=== PATIENT | male | born 1950 | race African-American/Black ===

== ENCOUNTER 2018-12-09 08:08 | Inpatient (IN) | payer MEDICARE, MEDICAID ==
[~2018-12-09] VITALS: Ht 170.2 cm; Wt 64.9 kg
[2018-12-09] MEDS ORDERED: SODIUM CHLORIDE 0.9% 1,000 ML IV ONE (08:20)
[2018-12-09 08:43] LABS: HEMATOCRIT. 47.6 % (42.0-52.0); HEMOGLOBIN. 15.6 g/dL (14.0-18.0); MEAN CORPUSCULAR HEMOGLOBIN 26.9 pg (28.0-32.0); MEAN CORPUSCULAR VOLUME 82.2 fL (80.0-94.0); MEAN PLATELET VOLUME 6.5 fl (7.4-10.4); PLATELET 300 x1000/uL (130-400); RED BLOOD CELL COUNT 5.79 mill/uL (4.7-6.1); RED CELL DISTRIBUTION WIDTH 15.9 % (11.6-14.6)
[2018-12-09] MEDS ORDERED: ONDANSETRON HCL 4MG/2ML INJ IV ONE (08:45)
[2018-12-09] MEDS ORDERED: MORPHINE SULFATE 10 MG/ML CPJ IV ONE (08:45)
[2018-12-09 08:48] LABS: CHLORIDE 100 mEq/L (98-107)
[2018-12-09 08:51] LABS: PARTIAL THROMBOPLASTIN TIME 29.4 sec (23.4-31.0); PROTHROMBIN TIME 10.5 sec (9.1-11.1)
[2018-12-09 09:04] LABS: PLATELET ESTIMATE NORMAL
[2018-12-09] MEDS ORDERED: DEXT 5%/0.45% NACL KCL 20MEQ/L 1,000 ML IV ONE (09:04)
[2018-12-09 09:34] LABS: CLARITY URINE CLEAR (CLEAR); COLOR URINE YELLOW (YELLOW); KETONES URINE 1+ (NEGATIVE); LEUKOCYTE ESTERASE URINE NEGATIVE (NEGATIVE); NITRITE URINE NEGATIVE (NEGATIVE); OCCULT BLOOD URINE TRACE (NEGATIVE); PROTEIN URINE 1+ (NEGATIVE); SPECIFIC GRAVITY URINE 1.014 (1.005-1.030); UROBILINOGEN URINE 0.2 E.U./dL (0.2-1.0)
[2018-12-09] MEDS ORDERED: ENALAPRIL 2.5MG/2ML VIAL 2ML IV ONE ×2 (10:15→12:45)
[2018-12-09] MEDS ORDERED: DOCUSATE SODIUM 100MG CAPSULE PO PRN (12:15)
[2018-12-09] MEDS ORDERED: TRAMADOL 50MG TABLET PO PRN (12:15)
[2018-12-09] MEDS ORDERED: ONDANSETRON HCL 4MG/2ML INJ IV PRN (12:15)
[2018-12-09] MEDS ORDERED: DIPHENHYDRAMINE 50MG/ML VIAL IV PRN (12:15)
[2018-12-09] MEDS ORDERED: CLONIDINE 0.1MG TABLET PO PRN (12:15)
[2018-12-09] MEDS ORDERED: IPRATROPIUM/ALBUTEROL 0.5-3(2.5)MG/3ML NEB INH PRN (12:15)
[2018-12-09] MEDS ORDERED: MAGNESIUM/ALUMINUM HYDROXIDE/SIMETHICONE 30ML UDC PO PRN (12:15)
[2018-12-09] MEDS ORDERED: GUAIFENESIN 200MG/10ML SUGAR FREE UDC PO PRN (12:15)
[2018-12-09] MEDS ORDERED: NA PHOS,M-B/NA PHOS,DI-BA ENEMA 118ML PR PRN (12:15)
[2018-12-09] MEDS: MORPHINE SULFATE 4 MG/ML CPJ (NOT FOR IM USE) IV PRN ×3 (12:35→23:03)
[2018-12-09] MEDS: KETOROLAC 15MG/ML VIAL IV PRN (12:36)
[2018-12-09 13:15] VITALS: BP 137/80
[2018-12-09] MEDS: ENOXAPARIN 40MG/0.4ML SYR SUBCUT SCH (14:00)
[2018-12-09] MEDS: HYDRALAZINE HCL 50MG TABLET PO SCH ×2 (15:58→21:04)
[2018-12-09] MEDS: AMLODIPINE 10MG TABLET PO SCH (15:59)
[2018-12-09 20:00] VITALS: BP 116/72
[2018-12-09] MEDS ORDERED: ZOLPIDEM TARTRATE 5MG TABLET PO PRN (21:00)
[2018-12-09] MEDS ORDERED: METOPROLOL TARTRATE 25MG TABLET PO SCH (21:00)
[2018-12-09] MEDS: ACETAMINOPHEN 325MG TABLET PO PRN (21:02)
[2018-12-09] MEDS: FAMOTIDINE 20MG TABLET PO SCH (21:03)
[2018-12-09] MEDS: ASCORBIC ACID 500 MG TABLET PO SCH (21:03)
[2018-12-09] MEDS: LISINOPRIL 20MG TABLET PO SCH (21:03)
[2018-12-10] VITALS: BP 89/57
[2018-12-10 04:00] VITALS: BP 101/53
[2018-12-10] MEDS: HYDRALAZINE HCL 50MG TABLET PO SCH ×3 (05:39→21:34)
[2018-12-10] MEDS: ACETAMINOPHEN 325MG TABLET PO PRN ×2 (05:47→23:39)
[2018-12-10 08:00] VITALS: BP 119/67
[2018-12-10] MEDS ORDERED: BACITRACIN 15GM TUBE TOP ONE (08:39)
[2018-12-10] MEDS ORDERED: VANCOMYCIN HCL 500 MG/VIAL ONE (08:39)
[2018-12-10] MEDS: ZINC SULFATE 220 MG ( 50 ) CAPSULE PO SCH (08:47)
[2018-12-10] MEDS: LISINOPRIL 20MG TABLET PO SCH ×2 (08:48→21:34)
[2018-12-10] MEDS: AMLODIPINE 10MG TABLET PO SCH (08:48)
[2018-12-10] MEDS: ASCORBIC ACID 500 MG TABLET PO SCH ×2 (08:48→21:33)
[2018-12-10] MEDS: FAMOTIDINE 20MG TABLET PO SCH ×2 (08:48→21:34)
[2018-12-10 11:19] LABS: *AMPHETAMINES SCREEN URINE NEGATIVE (NEGATIVE); *BARBITURATES SCREEN URINE NEGATIVE (NEGATIVE); *BENZODIAZEPINES SCREEN URINE NEGATIVE (NEGATIVE); *COCAINE SCREEN URINE PRESUMTIVE POSITIVE (NEGATIVE)
[2018-12-10 11:20] LABS: CANNABINOID URINE SCREEN NEGATIVE (NEGATIVE); METHADONE URINE SCREEN NEGATIVE (NEGATIVE); OPIATES URINE SCREEN NEGATIVE (NEGATIVE); PHENCYCLIDINE URINE SCREEN NEGATIVE (NEGATIVE)
[2018-12-10 12:00] VITALS: BP 149/105
[2018-12-10] MEDS ORDERED: PROPOFOL 200MG/20ML VIAL IV ONE (12:03)
[2018-12-10] MEDS ORDERED: MIDAZOLAM HCL 2 MG/2 ML VIAL ONE (12:05)
[2018-12-10] MEDS ORDERED: ROCURONIUM BROMIDE 10MG/ML VIAL 5ML IV ONE (12:05)
[2018-12-10] MEDS ORDERED: FENTANYL CITRATE/PF 50MCG/ML 2ML VIAL ONE (12:05)
[2018-12-10] MEDS ORDERED: PHENYLEPHRINE HCL 10 MG/ML 1ML (IV VIAL) IV ONE (12:14)
[2018-12-10] MEDS ORDERED: SODIUM CHLORIDE 0.9% 10ML VIAL ONE (12:14)
[2018-12-10] MEDS ORDERED: CEFAZOLIN SODIUM 1000MG/VIAL ONE (12:31)
[2018-12-10] MEDS ORDERED: ONDANSETRON HCL 4MG/2ML INJ ONE (12:52)
[2018-12-10] MEDS ORDERED: ESMOLOL HCL 10MG/ML 10ML VIAL IV ONE (13:05)
[2018-12-10] MEDS: ENOXAPARIN 40MG/0.4ML SYR SUBCUT SCH (14:00)
[2018-12-10] MEDS: HYDROMORPHONE HCL/PF 2MG/ML CPJ IV PRN ×2 (14:33→14:45)
[2018-12-10 16:00] VITALS: BP 138/79
[2018-12-10 20:00] VITALS: BP 118/75
[2018-12-10] MEDS: MORPHINE SULFATE 4 MG/ML CPJ (NOT FOR IM USE) IV PRN (21:33)
[2018-12-10] MEDS: CEFAZOLIN 1000MG PREMIX 50 ML IV SCH (21:35)
[2018-12-11] VITALS: BP 125/68
[2018-12-11] MEDS: CEFAZOLIN 1000MG PREMIX 50 ML IV SCH (03:51)
[2018-12-11 04:00] VITALS: BP 121/67
[2018-12-11] MEDS: KETOROLAC 15MG/ML VIAL IV PRN ×3 (04:17→22:03)
[2018-12-11] MEDS: HYDRALAZINE HCL 50MG TABLET PO SCH ×3 (05:57→22:03)
[2018-12-11 08:00] VITALS: BP_SYST 120; BP_SYST 122; BP_DIAS 62; BP_DIAS 66
[2018-12-11] MEDS: LISINOPRIL 20MG TABLET PO SCH ×2 (08:25→21:00)
[2018-12-11] MEDS: ZINC SULFATE 220 MG ( 50 ) CAPSULE PO SCH (08:25)
[2018-12-11] MEDS: AMLODIPINE 10MG TABLET PO SCH (08:25)
[2018-12-11] MEDS: ASCORBIC ACID 500 MG TABLET PO SCH ×2 (08:25→22:02)
[2018-12-11] MEDS: FAMOTIDINE 20MG TABLET PO SCH ×2 (08:25→22:06)
[2018-12-11 12:00] VITALS: BP 95/48
[2018-12-11] MEDS: ENOXAPARIN 40MG/0.4ML SYR SUBCUT SCH (14:32)
[2018-12-11 16:00] VITALS: BP 122/62
[2018-12-11 20:00] VITALS: BP 127/69
[2018-12-12] VITALS: BP 128/78
[2018-12-12 04:00] VITALS: BP 119/69
[2018-12-12] MEDS: HYDRALAZINE HCL 50MG TABLET PO SCH ×2 (06:18→13:41)
[2018-12-12 08:00] VITALS: BP 142/73
[2018-12-12] MEDS: AMLODIPINE 10MG TABLET PO SCH (09:20)
[2018-12-12] MEDS: ZINC SULFATE 220 MG ( 50 ) CAPSULE PO SCH (09:21)
[2018-12-12] MEDS: LISINOPRIL 20MG TABLET PO SCH (09:21)
[2018-12-12] MEDS: ASCORBIC ACID 500 MG TABLET PO SCH (09:21)
[2018-12-12] MEDS: FAMOTIDINE 20MG TABLET PO SCH (09:21)
[2018-12-12 12:00] VITALS: BP 134/74
[2018-12-12] MEDS ORDERED: FERROUS SULFATE 300MG/5ML UDC PO SCH (12:50)
[2018-12-12 13:15] VITALS: BP 134/74
[2018-12-12] MEDS: ENOXAPARIN 40MG/0.4ML SYR SUBCUT SCH (13:45)
[2018-12-12 14:50] VITALS: BP 118/56
[2018-12-12] MEDS: KETOROLAC 15MG/ML VIAL IV PRN (14:50)
[2018-12-12 16:17] LABS: BASOPHILS % 0.4 % (0.0-2.0); HEMATOCRIT. 34.2 % (42.0-52.0); HEMOGLOBIN. 11.2 g/dL (14.0-18.0); LYMPHOCYTES % 21.7 % (20.0-50.0); MEAN CORPUSCULAR HEMOGLOBIN 27.1 pg (28.0-32.0); MEAN CORPUSCULAR VOLUME 82.7 fL (80.0-94.0); MEAN PLATELET VOLUME 6.8 fl (7.4-10.4); MONOCYTES % 8.7 % (2.0-8.0); NEUTROPHILS % 65.2 % (40.0-76.0); PLATELET 231 x1000/uL (130-400); RED BLOOD CELL COUNT 4.14 mill/uL (4.7-6.1); RED CELL DISTRIBUTION WIDTH 15.8 % (11.6-14.6)
[2018-12-12] MEDS ORDERED: ATORVASTATIN CALCIUM 10MG TABLET PO SCH (21:00)
== END 2018-12-12 16:38 | DRG 481 ==
LOC: ER 08:08 → EDBEDREQSVC 09:58 → EDBEDREQ 09:58 → EDBEDREQTM 09:58 → 6EST 12:07 → EDBEDREQSVC 12:13 → SUPCPDRO 12:15 → ENRESERV 12:36 → 6EST 14:56
PROVIDERS: ADMIT Internal Medicine; ATTEND Internal Medicine
PROC: 0QS634Z Reposition Right Upper Femur with Internal Fixation Device, Percutaneous Approach (ICD-10-PCS; principal; 2018-12-10)
DX: S72.011A Unspecified intracapsular fracture of right femur, initial encounter for closed fracture (principal); I69.351 Hemiplegia and hemiparesis following cerebral infarction affecting right dominant side; E78.00 Pure hypercholesterolemia, unspecified; R26.9 Unspecified abnormalities of gait and mobility; W01.0XXA Fall on same level from slipping, tripping and stumbling without subsequent striking against object, initial encounter; I10 Essential (primary) hypertension; F14.10 Cocaine abuse, uncomplicated; Z82.49 Family history of ischemic heart disease and other diseases of the circulatory system; Z79.899 Other long term (current) drug therapy; Z87.891 Personal history of nicotine dependence; Y93.89 Activity, other specified; Y92.89 Other specified places as the place of occurrence of the external cause; Y99.8 Other external cause status
CPT/HCPCS: 36415; 71045; 72192; 73502; 73700; 76000; 80061; 80305; 82962; 83036; 84484; 86850; 86900; 93005; 93970; 96374; 97110; 97162; 97166; 99285; J0690; J1170; J1650; J1885; J2250; J2270; J2370; J2405; J2704; J3010; J3370; J3490; J7030

== ENCOUNTER 2018-12-12 16:40 | Inpatient (IN) | payer MEDICARE, MEDICAID ==
[~2018-12-12] VITALS: Ht 170.2 cm; Wt 64.9 kg
[2018-12-12 16:00] VITALS: BP 111/64
[2018-12-12 16:45] VITALS: BP 111/64
[2018-12-12] MEDS ORDERED: ONDANSETRON HCL 4MG/2ML INJ IV PRN (19:15)
[2018-12-12] MEDS ORDERED: MORPHINE SULFATE 4 MG/ML CPJ (NOT FOR IM USE) IV PRN (19:15)
[2018-12-12] MEDS ORDERED: DOCUSATE SODIUM 100MG CAPSULE PO PRN (19:15)
[2018-12-12] MEDS ORDERED: CLONIDINE 0.1MG TABLET PO PRN (19:15)
[2018-12-12] MEDS ORDERED: IPRATROPIUM/ALBUTEROL 0.5-3(2.5)MG/3ML NEB HHN PRN (19:15)
[2018-12-12] MEDS ORDERED: DIPHENHYDRAMINE 50MG/ML VIAL IV PRN (19:15)
[2018-12-12] MEDS ORDERED: KETOROLAC 15MG/ML VIAL IV PRN (19:15)
[2018-12-12] MEDS ORDERED: ACETAMINOPHEN 325MG TABLET PO PRN (19:15)
[2018-12-12] MEDS ORDERED: NA PHOS,M-B/NA PHOS,DI-BA ENEMA 118ML PR PRN (19:30)
[2018-12-12] MEDS ORDERED: MAGNESIUM/ALUMINUM HYDROXIDE/SIMETHICONE 30ML UDC PO PRN (19:30)
[2018-12-12] MEDS ORDERED: GUAIFENESIN 200MG/10ML SUGAR FREE UDC PO PRN (19:30)
[2018-12-12 20:00] VITALS: BP 118/61
[2018-12-12] MEDS ORDERED: ZOLPIDEM TARTRATE 5MG TABLET PO PRN (21:00)
[2018-12-12] MEDS: ASCORBIC ACID 500 MG TABLET PO SCH (21:10)
[2018-12-12] MEDS: FAMOTIDINE 20MG TABLET PO SCH (21:10)
[2018-12-12] MEDS: LISINOPRIL 20MG TABLET PO SCH (21:11)
[2018-12-12] MEDS: HYDRALAZINE HCL 50MG TABLET PO SCH (22:00)
[2018-12-13 05:15] VITALS: BP 106/64
[2018-12-13] MEDS: HYDRALAZINE HCL 50MG TABLET PO SCH ×3 (05:15→21:43)
[2018-12-13 06:37] LABS: CHLORIDE 103 mEq/L (98-107)
[2018-12-13 06:52] LABS: BASOPHILS % 0.6 % (0.0-2.0); EOSINOPHILS % 4.7 % (0.0-5.0); HEMATOCRIT. 34.3 % (42.0-52.0); HEMOGLOBIN. 11.4 g/dL (14.0-18.0); MEAN CORPUSCULAR HEMOGLOBIN 27.5 pg (28.0-32.0); MEAN CORPUSCULAR VOLUME 82.4 fL (80.0-94.0); MEAN PLATELET VOLUME 6.9 fl (7.4-10.4); MONOCYTES % 8.9 % (2.0-8.0); NEUTROPHILS % 61.8 % (40.0-76.0); PLATELET 244 x1000/uL (130-400); RED BLOOD CELL COUNT 4.16 mill/uL (4.7-6.1); RED CELL DISTRIBUTION WIDTH 15.7 % (11.6-14.6)
[2018-12-13 08:18] VITALS: BP 122/71
[2018-12-13] MEDS: FAMOTIDINE 20MG TABLET PO SCH ×2 (08:34→21:42)
[2018-12-13] MEDS: ENOXAPARIN 40MG/0.4ML SYR SUBCUT SCH (08:34)
[2018-12-13] MEDS: ZINC SULFATE 220 MG ( 50 ) CAPSULE PO SCH (08:34)
[2018-12-13] MEDS: LISINOPRIL 20MG TABLET PO SCH ×2 (08:35→21:43)
[2018-12-13] MEDS: AMLODIPINE 10MG TABLET PO SCH (08:35)
[2018-12-13] MEDS: ASCORBIC ACID 500 MG TABLET PO SCH ×2 (08:35→21:42)
[2018-12-13] MEDS: FERROUS SULFATE 300MG/5ML UDC PO SCH ×3 (08:35→17:21)
[2018-12-13 12:00] VITALS: BP 129/76
[2018-12-13] MEDS: LACTULOSE 20G/30ML UDC PO SCH ×2 (14:57→19:00)
[2018-12-13 16:50] VITALS: BP 117/67
[2018-12-13] MEDS: DOCUSATE SODIUM 100MG CAPSULE PO SCH (17:21)
[2018-12-13 20:00] VITALS: BP 114/63
[2018-12-13 20:08] LABS: ETHANOL BLOOD < 10 mg/dL
[2018-12-13 20:11] LABS: LDL CHOLESTEROL 87 mg/dL (5-100)
[2018-12-13 20:12] LABS: HDL CHOLESTEROL 33 mg/dL (40-59)
[2018-12-13 20:13] LABS: T4 FREE 1.16 ng/dL (0.76-1.46)
[2018-12-13 20:51] LABS: FOLIC ACID (FOLATE) SERUM 11.5 ng/mL (>5.38)
[2018-12-13] MEDS: POLYETHYLENE GLYCOL 3350 (17GM) 1 DOSE PACK PO SCH (21:00)
[2018-12-13] MEDS: ATORVASTATIN CALCIUM 10MG TABLET PO SCH (21:42)
[2018-12-13] MEDS: TRAMADOL 50MG TABLET PO PRN (22:59)
[2018-12-14 00:37] LABS: *AMPHETAMINES SCREEN URINE NEGATIVE (NEGATIVE); *BARBITURATES SCREEN URINE NEGATIVE (NEGATIVE); CANNABINOID URINE SCREEN NEGATIVE (NEGATIVE)
[2018-12-14 00:38] LABS: *BENZODIAZEPINES SCREEN URINE NEGATIVE (NEGATIVE); *COCAINE SCREEN URINE NEGATIVE (NEGATIVE); OPIATES URINE SCREEN NEGATIVE (NEGATIVE); PHENCYCLIDINE URINE SCREEN NEGATIVE (NEGATIVE)
[2018-12-14 00:43] LABS: METHADONE URINE SCREEN NEGATIVE (NEGATIVE)
[2018-12-14] MEDS: HYDRALAZINE HCL 50MG TABLET PO SCH ×3 (06:00→21:57)
[2018-12-14] MEDS: TRAMADOL 50MG TABLET PO PRN ×3 (06:16→21:57)
[2018-12-14 08:00] VITALS: BP 124/74
[2018-12-14] MEDS: DOCUSATE SODIUM 100MG CAPSULE PO SCH ×2 (08:31→16:25)
[2018-12-14] MEDS: ENOXAPARIN 40MG/0.4ML SYR SUBCUT SCH (08:31)
[2018-12-14] MEDS: FERROUS SULFATE 300MG/5ML UDC PO SCH ×3 (08:31→16:25)
[2018-12-14] MEDS: ASCORBIC ACID 500 MG TABLET PO SCH ×2 (08:32→20:49)
[2018-12-14] MEDS: LISINOPRIL 20MG TABLET PO SCH ×2 (08:32→20:49)
[2018-12-14] MEDS: FAMOTIDINE 20MG TABLET PO SCH ×2 (08:32→20:49)
[2018-12-14] MEDS: AMLODIPINE 10MG TABLET PO SCH (08:32)
[2018-12-14] MEDS: ZINC SULFATE 220 MG ( 50 ) CAPSULE PO SCH (08:32)
[2018-12-14] MEDS ORDERED: CYANOCOBALAMIN 1000MCG/ML VIAL IM NR (16:30)
[2018-12-14 20:00] VITALS: BP 123/74
[2018-12-14] MEDS: ATORVASTATIN CALCIUM 10MG TABLET PO SCH (20:49)
[2018-12-14] MEDS: POLYETHYLENE GLYCOL 3350 (17GM) 1 DOSE PACK PO SCH (20:49)
[2018-12-15] MEDS: HYDRALAZINE HCL 50MG TABLET PO SCH ×3 (05:40→21:29)
[2018-12-15 07:36] LABS: CHLORIDE 99 mEq/L (98-107)
[2018-12-15 07:41] LABS: BASOPHILS % 0.8 % (0.0-2.0); EOSINOPHILS % 4.4 % (0.0-5.0); HEMATOCRIT. 34.1 % (42.0-52.0); HEMOGLOBIN. 11.4 g/dL (14.0-18.0); LYMPHOCYTES % 22.7 % (20.0-50.0); MEAN CORPUSCULAR HEMOGLOBIN 27.2 pg (28.0-32.0); MEAN CORPUSCULAR VOLUME 81.5 fL (80.0-94.0); MEAN PLATELET VOLUME 6.8 fl (7.4-10.4); MONOCYTES % 8.5 % (2.0-8.0); NEUTROPHILS % 63.6 % (40.0-76.0); PLATELET 322 x1000/uL (130-400); RED BLOOD CELL COUNT 4.19 mill/uL (4.7-6.1); RED CELL DISTRIBUTION WIDTH 15.1 % (11.6-14.6)
[2018-12-15 07:54] LABS: PHOSPHORUS 3.7 mg/dL (2.5-4.9)
[2018-12-15 07:56] LABS: LDL CHOLESTEROL 91 mg/dL (5-100); TOTAL IRON BINDING CAPACITY 243 ug/dL (250-450)
[2018-12-15 07:57] LABS: HDL CHOLESTEROL 33 mg/dL (40-59)
[2018-12-15 08:00] VITALS: BP 119/62
[2018-12-15 08:07] LABS: PROSTRATE SPECIFIC AG TOTAL 0.27 ng/mL (0.0-4.0)
[2018-12-15] MEDS: DOCUSATE SODIUM 100MG CAPSULE PO SCH ×2 (08:19→17:12)
[2018-12-15] MEDS: FERROUS SULFATE 300MG/5ML UDC PO SCH ×3 (08:19→17:12)
[2018-12-15] MEDS: FAMOTIDINE 20MG TABLET PO SCH ×2 (08:19→20:34)
[2018-12-15] MEDS: ZINC SULFATE 220 MG ( 50 ) CAPSULE PO SCH (08:19)
[2018-12-15] MEDS: ASCORBIC ACID 500 MG TABLET PO SCH ×2 (08:19→20:34)
[2018-12-15] MEDS: LISINOPRIL 20MG TABLET PO SCH ×2 (08:20→20:34)
[2018-12-15] MEDS: AMLODIPINE 10MG TABLET PO SCH (08:20)
[2018-12-15] MEDS: TRAMADOL 50MG TABLET PO PRN ×3 (08:21→21:30)
[2018-12-15] MEDS: ENOXAPARIN 40MG/0.4ML SYR SUBCUT SCH (08:22)
[2018-12-15] MEDS ORDERED: DOCUSATE SODIUM 100MG CAPSULE PO PRN (18:45)
[2018-12-15] MEDS ORDERED: IOHEXOL-350 100 ML BOTTLE ONE (19:16)
[2018-12-15 20:00] VITALS: BP 114/69
[2018-12-15] MEDS: ATORVASTATIN CALCIUM 10MG TABLET PO SCH (20:34)
[2018-12-15] MEDS: POLYETHYLENE GLYCOL 3350 (17GM) 1 DOSE PACK PO SCH (20:34)
[2018-12-16] MEDS: TRAMADOL 50MG TABLET PO PRN ×3 (05:05→21:16)
[2018-12-16] MEDS: HYDRALAZINE HCL 50MG TABLET PO SCH ×3 (05:05→23:19)
[2018-12-16 07:59] VITALS: BP 114/51
[2018-12-16] MEDS: ASCORBIC ACID 500 MG TABLET PO SCH ×2 (08:55→21:15)
[2018-12-16] MEDS: ZINC SULFATE 220 MG ( 50 ) CAPSULE PO SCH (08:55)
[2018-12-16] MEDS: FAMOTIDINE 20MG TABLET PO SCH ×2 (08:55→21:16)
[2018-12-16] MEDS: LISINOPRIL 20MG TABLET PO SCH ×2 (08:55→21:16)
[2018-12-16] MEDS: ENOXAPARIN 40MG/0.4ML SYR SUBCUT SCH (08:56)
[2018-12-16] MEDS: AMLODIPINE 10MG TABLET PO SCH (08:56)
[2018-12-16] MEDS: DOCUSATE SODIUM 100MG CAPSULE PO SCH ×2 (08:56→17:19)
[2018-12-16] MEDS: FERROUS SULFATE 300MG/5ML UDC PO SCH ×3 (08:56→17:19)
[2018-12-16] MEDS ORDERED: HYDROCODONE/ACETAMINOPHEN 5/325MG TABLET PO PRN (11:30)
[2018-12-16] MEDS ORDERED: LACTULOSE 20G/30ML UDC PO PRN (11:30)
[2018-12-16] MEDS ORDERED: CYANOCOBALAMIN 1000MCG/ML VIAL IM SCH (14:15)
[2018-12-16 20:00] VITALS: BP 125/65
[2018-12-16] MEDS: POLYETHYLENE GLYCOL 3350 (17GM) 1 DOSE PACK PO SCH (21:15)
[2018-12-16] MEDS: ATORVASTATIN CALCIUM 10MG TABLET PO SCH (21:16)
[2018-12-17] MEDS: HYDRALAZINE HCL 50MG TABLET PO SCH ×2 (06:00→13:02)
[2018-12-17 08:12] VITALS: BP 100/64
[2018-12-17] MEDS: ASCORBIC ACID 500 MG TABLET PO SCH (08:35)
[2018-12-17] MEDS: FERROUS SULFATE 300MG/5ML UDC PO SCH ×2 (08:35→13:02)
[2018-12-17] MEDS: DOCUSATE SODIUM 100MG CAPSULE PO SCH (08:35)
[2018-12-17] MEDS: ZINC SULFATE 220 MG ( 50 ) CAPSULE PO SCH (08:35)
[2018-12-17] MEDS: FAMOTIDINE 20MG TABLET PO SCH (08:35)
[2018-12-17] MEDS: ENOXAPARIN 40MG/0.4ML SYR SUBCUT SCH (08:35)
[2018-12-17] MEDS: AMLODIPINE 10MG TABLET PO SCH (08:36)
[2018-12-17] MEDS: LISINOPRIL 20MG TABLET PO SCH (08:36)
[2018-12-17] MEDS ORDERED: IOHEXOL-350 100 ML BOTTLE ONE (10:49)
[2018-12-17 12:10] VITALS: BP 98/58
[2018-12-21 04:11] LABS: 25-HYDROXY VITAMIN D3 9.1 ng/mL (.)
== END 2018-12-17 15:00 | disposition home health service (06) | DRG 536 ==
PROVIDERS: ADMIT Physical Medicine & Rehabilitation Spinal Cord Injury Medicine; ATTEND Internal Medicine
DX: S72.011A Unspecified intracapsular fracture of right femur, initial encounter for closed fracture (principal); I69.351 Hemiplegia and hemiparesis following cerebral infarction affecting right dominant side; E46 Unspecified protein-calorie malnutrition; R41.4 Neurologic neglect syndrome; W18.39XA Other fall on same level, initial encounter; Y93.89 Activity, other specified; Y92.89 Other specified places as the place of occurrence of the external cause; Y99.8 Other external cause status; I10 Essential (primary) hypertension; D64.9 Anemia, unspecified; E78.00 Pure hypercholesterolemia, unspecified; F10.10 Alcohol abuse, uncomplicated; F14.10 Cocaine abuse, uncomplicated; Z82.49 Family history of ischemic heart disease and other diseases of the circulatory system; F17.290 Nicotine dependence, other tobacco product, uncomplicated; F06.31 Mood disorder due to known physiological condition with depressive features; Z68.22 Body mass index [BMI] 22.0-22.9, adult; Z79.899 Other long term (current) drug therapy; R26.9 Unspecified abnormalities of gait and mobility; R53.81 Other malaise; R47.1 Dysarthria and anarthria; I65.1 Occlusion and stenosis of basilar artery; I65.23 Occlusion and stenosis of bilateral carotid arteries; I65.01 Occlusion and stenosis of right vertebral artery; Z71.51 Drug abuse counseling and surveillance of drug abuser
CPT/HCPCS: 36415; 70496; 70498; 70544; 70553; 80048; 80061; 80305; 80320; 82306; 82607; 82728; 82746; 83036; 83540; 83550; 83735; 84100; 84134; 84153; 84439; 84443; 84481; 92508; 92523; 93306; 93880; 93970; 97110; 97116; 97163; 97166; 97530; 97535; G0515; J1650; J1885; J3420; J7040; J7620; Q9967; G0103; G0480

== ENCOUNTER 2019-01-05 10:46 | Emergency (ER) | payer MEDICARE, MEDICAID ==
[~2019-01-05] VITALS: Ht 170.2 cm; Wt 61.0 kg
[2019-01-05 16:05] VITALS: BP 184/94
== END 2019-01-05 16:15 | disposition home or self-care (01) ==
LOC: ER 10:46
DX: Z48.00 Encounter for change or removal of nonsurgical wound dressing (principal); Z86.73 Personal history of transient ischemic attack (TIA), and cerebral infarction without residual deficits
CPT/HCPCS: 99283